=== PATIENT | female | born 1990 | race Caucasian/White ===

== ENCOUNTER 2016-05-16 09:01 | Emergency (ER) | payer OTHER ==
[2016-05-16 10:11] LABS: BASO # 0.1 10_X3_uL (0.0-0.1); BASO % 0.6 % (0.1-1.2); EOS # 0.1 10_X3_uL (0.0-0.4); EOS % 1.7 % (0.7-5.8); GRAN # 4.8 10_X3_uL (1.6-6.1); GRAN % 57.7 % (34.0-71.1); HEMATOCRIT 43.6 % (34-45); LYMPH # 2.9 10_X3_uL (1.2-3.7); LYMPH % 34.5 % (19.3-51.7); MEAN CORPUSCULAR HEMOGLOBIN 33.3 pg (27.0-33.0); MEAN CORPUSCULAR HGB CONC 34.4 g/dL (32.0-36.0); MEAN CORPUSCULAR VOLUME 96.9 fL (79-95); MEAN PLATELET VOLUME 10.2 fl (7.5-11.5); MONO # 0.5 10_X3_uL (0.2-0.9); MONO % 5.5 % (4.7-12.5); PLATELET COUNT 301 x10_3/uL (182-369); RED CELL DISTRIBUTION WIDTH 12.1 % (11.7-14.4); WHITE BLOOD COUNT 8.3 x10_3/uL (4.0-10.0)
[2016-05-16 10:28] LABS: ALBUMIN 4.5 gm/dL (3.4-5.0); ALKALINE PHOSPHATASE 76 U/L (50-136); ALT/SGPT 15 U/L (3.5-33.9); AST/SGOT 14 U/L (7.04-26.96); BILIRUBIN,TOTAL 0.57 mg/dL (0.0-1.0); BLOOD UREA NITROGEN 9 mg/dL (7-18); CALCIUM 9.4 mg/dL (8.7-10.7); CARBON DIOXIDE 24 mmol/L (21-32); CREATININE 0.8 mg/dL (0.6-1.3); GLUCOSE,RANDOM 92 mg/dL (70-99); POTASSIUM 3.1 mmol/L (3.5-5.1); SODIUM 137 mmol/L (136-145); TOTAL PROTEIN 8.5 gm/dL (6.4-8.2)
[2016-05-16 10:30] LABS: ACETAMINOPHEN < 15.0 ug/ml (10.0-30.0); ETHYL ALCOHOL < 10 mg/dl
== END 2016-05-16 10:40 ==
LOC: ER 09:01
PROVIDERS: Emergency Medicine
DX: Z02.83 Encounter for blood-alcohol and blood-drug test (principal); E16.2 Hypoglycemia, unspecified; F17.210 Nicotine dependence, cigarettes, uncomplicated; Z79.899 Other long term (current) drug therapy
CPT/HCPCS: 36415; 80053; 80307; 81025; 85025; 99284; G0480